=== PATIENT | female | born 1955 | race Native Hawaiian/Other Pacific Islander ===

== ENCOUNTER 2023-07-13 13:00 | Outpatient (CLI) | payer OTHER | END 2023-07-13 20:53 | disposition home or self-care (01) | LOC: RAD 13:00 | PROVIDERS: ATTEND Nurse Practitioner Family | DX: E55.9 Vitamin D deficiency, unspecified (principal); M06.4 Inflammatory polyarthropathy; M85.89 Other specified disorders of bone density and structure, multiple sites; R76.0 Raised antibody titer; Z79.899 Other long term (current) drug therapy ==